=== PATIENT | female | born 1945 | race African-American/Black ===

== ENCOUNTER 2018-06-22 13:19 | Emergency (ER) | payer MEDICARE, OTHER, MEDICAID ==
[~2018-06-22] VITALS: Ht 167.6 cm; Wt 68.0 kg
[2018-06-22] MEDS ORDERED: KETOROLAC 60MG/2ML VIAL IM ONE (14:30)
[2018-06-22 16:18] LABS: CLARITY URINE CLEAR (CLEAR); COLOR URINE YELLOW (YELLOW); KETONES URINE TRACE (NEGATIVE); LEUKOCYTE ESTERASE URINE 1+ (NEGATIVE); NITRITE URINE NEGATIVE (NEGATIVE); OCCULT BLOOD URINE NEGATIVE (NEGATIVE); PH URINE 5.5 (4.5-8.0); PROTEIN URINE NEGATIVE (NEGATIVE); SPECIFIC GRAVITY URINE 1.024 (1.005-1.030)
[2018-06-22 16:50] VITALS: BP 134/68
== END 2018-06-22 17:00 | disposition home or self-care (01) ==
LOC: ER 13:19
DX: M54.89 Other dorsalgia (principal); E11.9 Type 2 diabetes mellitus without complications; I10 Essential (primary) hypertension; Z88.0 Allergy status to penicillin; X50.0XXA Overexertion from strenuous movement or load, initial encounter; Y93.89 Activity, other specified; Y92.018 Other place in single-family (private) house as the place of occurrence of the external cause
CPT/HCPCS: 81003; 96379; 99283; J1885